=== PATIENT | male | born 1985 | race Caucasian/White ===

== ENCOUNTER 2023-10-01 18:30 | Emergency (ER) | payer MEDICAID, SELFPAY ==
[2023-10-01 18:31] VITALS: BP 132/82; PULSE 77; RESP 16; TEMP 36.4; O2SAT 98; BMI 23.8
--- NOTE | 2023-10-01 19:10 | EX.ED.VIS.PS ---
HPI <Dr. Tarik Mayen DO - Last Filed: 10/05/23 07:21> HPI - Psych History of Present Illness Chief Complaint: Abd Pain Narrative Narrative: 38-year-old male presenting with suicidal thoughts. He states he does not have a plan to kill himself. He does believe he might hurt himself if he gets discharged home. Patient was recently seen for similar symptoms in [place]. Patient states that he was put in a facility for psychiatric issues. Patient reports he has a history of bipolar disorder and anxiety and is on any medications. He said with his recent hospitalization he was discharged home with medications and states that he did not know how to get his medications refilled because he was in a different town and did not know where to go. Patient states that he recently moved to [place] to live with his sister who had liver cancer. He states he has been biking and hitchhiking his way back home to [place]. He states he lost his bike somewhere along the way. Patient does have a hiking pack and sleeping bags. Patient states that he is trying to get back to his hometown where he can get his healthcare providers. PFSH <Dr. Tarik Mayen, - Last Filed: 10/05/23 07:21> PFSH Allergy/AdvReac Type Severity Reaction Status Date / Time No Known Allergies Allergy Verified 10/01/23 18:38 Social History Smoking Status: Current every day smoker tobacco type: cigarettes ROS <Dr. Tarik Mayen, - Last Filed: 10/05/23 07:21> ROS ED Constitutional Constitutional ED: Denies chills, fever(s) or sweats Eyes Eyes: Denies blurry vision or change in vision ENT ENT ED: Denies ear pain or sore throat Cardiovascular Cardiovascular: Denies chest pain, palpitations or racing heartbeat Respiratory/Chest Respiratory/Chest: Denies cough, dyspnea or sputum Gastrointestinal Gastrointestinal: Denies abdominal pain, constipation, diarrhea, nausea or vomiting Genitourinary Genitourinary ED: Denies dysuria, hematuria or urinary frequency Musculoskeletal Musculoskeletal: Denies arthralgias, myalgias or neck pain Integumentary Denies abscess, Abrasions or rash Neurologic Neurologic: Denies headache(s), paresthesias or weakness Psychiatric Psychiatric: Denies anxiety, depression, suicidal ideation or suicidal thoughts Endocrine Endocrinology: Denies polydipsia or polyuria EXAM <Dr. Tarik Mayen DO - Last Filed: 10/05/23 07:21> Physical Exam Const Vital Signs: 10/01/23 18:31 10/01/23 23:32 10/02/23 04:19 Temperature 97.6 F L 98.1 F Temperature Source Temporal Temporal Pulse Rate 77 74 84 Respiratory Rate 16 17 16 Blood Pressure 132/82 H 128/86 H 122/66 H Blood Pressure Mean 98 100 84 Pulse Ox 98 100 98 Oxygen Delivery Method Room Air Room Air Room Air 10/02/23 06:34 10/02/23 10:19 10/02/23 16:00 Temperature 97.7 F L Temperature Source Temporal Pulse Rate 88 61 81 Respiratory Rate 16 17 16 Blood Pressure 108/70 114/70 118/69 Blood Pressure Mean 82 84 85 Pulse Ox 99 97 98 Oxygen Delivery Method Room Air Room Air Room Air 10/02/23 15:00 Temperature Temperature Source Pulse Rate Respiratory Rate 18 Blood Pressure Blood Pressure Mean Pulse Ox Oxygen Delivery Method Positive well nourished and well developed General Appearance ED: well developed; Negative for pallor HEENT Reports moist mucous membranes Eyes PERRL and EOMs intact bilaterally Resp normal respiratory effort and clear to auscultation bilaterally Neuro oriented x3 and CN's II-XII intact bilaterally Sensorium / Orientation: alert Psych cooperative, denies hallucinations and denies homicidal ideation Appearance: well kempt Attitude: calm Speech: normal speech Mood & Affect: euthymic mood Attention / Concentration: attention grossly intact and concentration grossly intact Insight: limited Judgement: limited Skin General Skin Exam: Negative for jaundice or pallor <Dr. Prosper Day MD - Last Filed: 10/02/23 15:19> Physical Exam Const Vital Signs: 10/01/23 18:31 10/01/23 23:32 10/02/23 04:19 Temperature 97.6 F L 98.1 F Temperature Source Temporal Temporal Pulse Rate 77 74 84 Respiratory Rate 16 17 16 Blood Pressure 132/82 H 128/86 H 122/66 H Blood Pressure Mean 98 100 84 Pulse Ox 98 100 98 Oxygen Delivery Method Room Air Room Air Room Air 10/02/23 06:34 10/02/23 10:19 10/02/23 16:00 Temperature 97.7 F L Temperature Source Temporal Pulse Rate 88 61 81 Respiratory Rate 16 17 16 Blood Pressure 108/70 114/70 118/69 Blood Pressure Mean 82 84 85 Pulse Ox 99 97 98 Oxygen Delivery Method Room Air Room Air Room Air 10/02/23 15:00 Temperature Temperature Source Pulse Rate Respiratory Rate 18 Blood Pressure Blood Pressure Mean Pulse Ox Oxygen Delivery Method <Dr. Rajesh Payton MD - Last Filed: 10/02/23 16:43> Physical Exam Const Vital Signs: 10/01/23 18:31 10/01/23 23:32 10/02/23 04:19 Temperature 97.6 F L 98.1 F Temperature Source Temporal Temporal Pulse Rate 77 74 84 Respiratory Rate 16 17 16 Blood Pressure 132/82 H 128/86 H 122/66 H Blood Pressure Mean 98 100 84 Pulse Ox 98 100 98 Oxygen Delivery Method Room Air Room Air Room Air 10/02/23 06:34 10/02/23 10:19 10/02/23 16:00 Temperature 97.7 F L Temperature Source Temporal Pulse Rate 88 61 81 Respiratory Rate 16 17 16 Blood Pressure 108/70 114/70 118/69 Blood Pressure Mean 82 84 85 Pulse Ox 99 97 98 Oxygen Delivery Method Room Air Room Air Room Air 10/02/23 15:00 Temperature Temperature Source Pulse Rate Respiratory Rate 18 Blood Pressure Blood Pressure Mean Pulse Ox Oxygen Delivery Method MDM <Dr. Tarik Mayen DO - Last Filed: 10/05/23 07:21> MDM MDM Narrative Medical decision making narrative: Patient presenting with suicidal thoughts. He was just seen 09/29/2023 in [facility]. He states he was admitted to a psychiatric facility however when I discussed this with him and told him that he looks like he was discharged with a bus pass and some food he states home [place] Schwarz remember that. He still states that he is feeling suicidal. He states he is concerned about leaving. At this point I will get appropriate screening lab work and have right to see him. Lab Data Attestation: I reviewed the patient's lab results. Labs: Laboratory Results - last 24 hr 10/01/23 10/01/23 19:10 20:27 WBC 7.7 RBC 4.15 L Hgb 13.2 Hct 39.6 L MCV 95.4 H MCH 31.8 MCHC 33.3 RDW Std Deviation 48.1 H RDW Coeff of Charo 13.6 Plt Count 273 MPV 9.3 Immature Gran % (Auto) 0.300 Neut % (Auto) 55.0 Lymph % (Auto) 31.5 [place] % (Auto) 9.8 Eos % (Auto) 2.6 Baso % (Auto) 0.8 Absolute Neuts (auto) 4.2 Absolute Lymphs (auto) 2.41 Nucleated RBC % 0 Sodium 140 Potassium 3.6 Chloride 112 H Carbon Dioxide 24.0 Anion Gap 4 L BUN 24 H Creatinine 0.94 Estim Creat Clear Calc 114.66 Est GFR (MDRD) Af Amer 114 Est GFR (MDRD) Non-Af 94 BUN/Creatinine Ratio 25.6 H Glucose 133 H Calcium 8.6 Urine Opiates Screen NEGATIVE Urine Methadone Screen NEGATIVE Ur Barbiturates Screen NEGATIVE Ur Phencyclidine Scrn NEGATIVE Ur Amphetamines Screen NEGATIVE MDMA (Ecstasy) Screen NEGATIVE U Benzodiazepines Scrn NEGATIVE Urine Cocaine Screen NEGATIVE U Cannabinoids Screen NEGATIVE Ur Drug Screen Comment Ethyl Alcohol < 3.0 <Dr. Prosper Day MD - Last Filed: 10/02/23 15:19> [facility] Lab Data Lab results narrative: CBC is normal. BMP is unremarkable other than glucose of 133 with a normal CO2 anion gap and a elevated BUN to creatinine ratio. Talk screen is negative. Labs: Laboratory Results - last 24 hr 10/01/23 10/01/23 19:10 20:27 WBC 7.7 RBC 4.15 L Hgb 13.2 Hct 39.6 L MCV 95.4 H MCH 31.8 MCHC 33.3 RDW Std Deviation 48.1 H RDW Coeff of Charo 13.6 Plt Count 273 MPV 9.3 Immature Gran % (Auto) 0.300 Neut % (Auto) 55.0 Lymph % (Auto) 31.5 [place] % (Auto) 9.8 Eos % (Auto) 2.6 Baso % (Auto) 0.8 Absolute Neuts (auto) 4.2 Absolute Lymphs (auto) 2.41 Nucleated RBC % 0 Sodium 140 Potassium 3.6 Chloride 112 H Carbon Dioxide 24.0 Anion Gap 4 L BUN 24 H Creatinine 0.94 Estim Creat Clear Calc 114.66 Est GFR (MDRD) Af Amer 114 Est GFR (MDRD) Non-Af 94 BUN/Creatinine Ratio 25.6 H Glucose 133 H Calcium 8.6 Urine Opiates Screen NEGATIVE Urine Methadone Screen NEGATIVE Ur Barbiturates Screen NEGATIVE Ur Phencyclidine Scrn NEGATIVE Ur Amphetamines Screen NEGATIVE MDMA (Ecstasy) Screen NEGATIVE U Benzodiazepines Scrn NEGATIVE Urine Cocaine Screen NEGATIVE U Cannabinoids Screen NEGATIVE Ur Drug Screen Comment Ethyl Alcohol < 3.0 Treatment and Re-Evaluation Narrative: At change of shift I was informed of the patient's history and physical. Dr. Kurt Hill informed there was no issues during the night. I was informed that the counseling service did pink slipped him. The licensed appraiser for the counseling center has been working on disposition. At this time he has not been accepted at any facility. Patient was cooperative and there were no issues during my shift. Will transfer care to the afternoon physician Dr. Payton. <Dr. Rajesh Payton MD - Last Filed: 10/02/23 16:43> [facility] Lab Data Labs: Laboratory Results - last 24 hr 10/01/23 10/01/23 19:10 20:27 WBC 7.7 RBC 4.15 L Hgb 13.2 Hct 39.6 L MCV 95.4 H MCH 31.8 MCHC 33.3 RDW Std Deviation 48.1 H RDW Coeff of Charo 13.6 Plt Count 273 MPV 9.3 Immature Gran % (Auto) 0.300 Neut % (Auto) 55.0 Lymph % (Auto) 31.5 [place] % (Auto) 9.8 Eos % (Auto) 2.6 Baso % (Auto) 0.8 Absolute Neuts (auto) 4.2 Absolute Lymphs (auto) 2.41 Nucleated RBC % 0 Sodium 140 Potassium 3.6 Chloride 112 H Carbon Dioxide 24.0 Anion Gap 4 L BUN 24 H Creatinine 0.94 Estim Creat Clear Calc 114.66 Est GFR (MDRD) Af Amer 114 Est GFR (MDRD) Non-Af 94 BUN/Creatinine Ratio 25.6 H Glucose 133 H Calcium 8.6 Urine Opiates Screen NEGATIVE Urine Methadone Screen NEGATIVE Ur Barbiturates Screen NEGATIVE Ur Phencyclidine Scrn NEGATIVE Ur Amphetamines Screen NEGATIVE MDMA (Ecstasy) Screen NEGATIVE U Benzodiazepines Scrn NEGATIVE Urine Cocaine Screen NEGATIVE U Cannabinoids Screen NEGATIVE Ur Drug Screen Comment Ethyl Alcohol < 3.0 Rhythm Strip Rhythm Strip: Sinus bradycardia Rate: 51 Ectopy: None EKG Initial EKG: Attestation: I personally reviewed and interpreted this EKG as follows: Interpretation: Sinus Rhythm and Sinus Bradycardia Comments: Sinus bradycardia rate of 51 no acute signs of [place], ischemia or significant heart block. Discharge Plan Triage Chief Complaint: Abd Pain ED Provider: Tarik Mayen Dx/Rx/DC Orders Primary Care Provider: Care Physician,No Primary Referrals: Care Physician,No Primary [Primary Care Provider] - Disposition Disposition: Psychiatric Hospital or Unit Discharge Location: [facility] Discharge Date/Time: 10/02/23 20:01
[2023-10-01 19:22] LABS: Absolute Lymphocyte Count 2.41 X10^3/uL (0.83-4.51); Absolute Neutrophil Count 4.2 X10^3/uL (2.0-7.7); Basophil# 0.06 X10^3/uL; Basophil% 0.8 % (0-1); Eosinophils% 2.6 % (0-5); Hematocrit 39.6 % (40-54); Hemoglobin 13.2 g/dL (13.0-16.5); Lymphocyte # 2.41 X10^3/ul (0.83-4.51); Lymphocyte % 31.5 % (19-41); Mean Corp Hgb Conc 33.3 g/dL (32-36); Mean Corpuscular Hgb 31.8 pg (27.0-32.0); Mean Corpuscular Volume 95.4 fL (80-94); Mean Platelet Vol. 9.3 fl (6.2-12.0); Monocyte# 0.75 X10^3/uL; Monocyte% 9.8 % (0-10); NRBC Flagged by Analyzer 0 % (0-5); Neutrophil # 4.21 X10^3/uL (2.7-7.7); Platelet Count 273 K/mm3 (150-450); RBC Distribution Width CV 13.6 % (11.6-14.6); RBC Distribution Width SD 48.1 fl (35.1-43.9); Red Blood Count 4.15 M/mm3 (4.6-6.2); White Blood Count 7.7 K/mm3 (4.4-11.0)
[2023-10-01 19:40] LABS: Alcohol, Blood (Medical)-Serum < 3.0 mg/dL
[2023-10-01 19:42] LABS: Anion Gap 4 (5-15); BUN 24 mg/dL (7-18); BUN/Creat Ratio 25.6 RATIO (10-20); Calcium,Total 8.6 mg/dL (8.5-10.1); Chloride 112 mmol/L (98-107); Creatinine, Serum 0.94 mg/dL (0.70-1.30); EST Glomerular Filtration Rate 94 mL/min (>60); Est Glom Filt Rate - Afr Amer 114 mL/min (>60); Estimated Creatinine Clearance 114.66 ml/min; Glucose 133 mg/dL (74-106); Potassium 3.6 mmol/L (3.5-5.1); Sodium Level 140 mmol/L (136-145)
[2023-10-01 20:54] LABS: Amphetamine Urine VISTA NEGATIVE (<1000 ng/mL); Barbiturate Urine VISTA NEGATIVE (< 200 ng/mL); Benzodiazepine Urine VISTA NEGATIVE (< 200 ng/mL); Cocaine Urine VISTA NEGATIVE (< 300 ng/mL); Ecstacy Urine VISTA NEGATIVE (< 500 ng/mL); Methadone Urine VISTA NEGATIVE (< 300 ng/mL); PCP Urine VISTA NEGATIVE (< 25 ng/mL); THC Urine VISTA NEGATIVE (< 50 ng/mL); Vista UDS pH Range 5
[2023-10-01 23:32] VITALS: BP 128/86; PULSE 74; RESP 17; O2SAT 100
[2023-10-02] VITALS (8 sets, daily range): BP systolic 108–122; BP diastolic 66–70; PULSE 61–88; RESP 16–18; TEMP 36.5–36.7; O2SAT 97–99
--- NOTE | 2023-10-02 07:02 | ED.RN ---
RECEIVED CALL FROM TAVO [facility], SHE REFERRED PT TO [facility] AND [facility].
--- NOTE | 2023-10-02 12:19 | ED.RN ---
TAVO FROM CRISIS CALLED TO LET US KNOW PT WAS DECLINED AT [facility] DUE TO INSURANCE. [facility] COULD POSSIBLY ACCEPT WHEN THEY VIEW PROOF OF MEDICAID INSURANCE, TAVO IS WORKING ON THIS. [facility] HAS NO BED AVAILABILITY SO TAVO REFERRED PT TO [facility].
--- NOTE | 2023-10-02 16:26 | EKG12_ITS ---
Test Reason : PLACEMENT Blood Pressure : / mmHG Vent. Rate : 051 BPM Atrial Rate : 051 BPM P-R Int : 128 ms QRS Dur : 096 ms QT Int : 394 ms P-R-T Axes : -13 009 045 degrees QTc Int : 363 ms Sinus bradycardia Otherwise normal ECG Confirmed by Glenn Porras ([id number]), newspaper editor managing CANDY TAVAREZ ([id number]) on 10/03/2023 10:35:07 AM Referred By: Confirmed By:Glenn Porras
--- NOTE | 2023-10-02 16:30 | ED.RN ---
NO OLD EKG
--- NOTE | 2023-10-02 16:37 | ED.RN ---
RT AT THE BEDSIDE TO OBTAIN EKG. PT STARTS RAISING VOICE STATING I DON'T NEED THAT, I AM LEAVING, I AIN'T GOING FUCKING NOWHERE . THIS RN APPROACHES THE DOOR WAY AND ASKED THE PATIENT WHY HE IS UPSET. PT STATES I HAVE BEEN HERE FOR 24 FUCKING HOURS, I AIN'T DOIN NOTHING TO MYSELF YOU CAN GIVE ME MY FUCKING SHIT AND I FUCKING WILL LEAVE. RN TELLS PATIENT THAT HE CAN NOT LEAVE BECAUSE HE IS PINK SLIPPED D/T MAKING THREATS OF HARM AGAINST HIMSELF. PT STATES I CAN LEAVE OR I WILL START RIPPING FUCKING FACES OFF. RN ASKS PATIENT ARE YOU THREATENING STAFF? PATIENT STATES YEAH I FUCKING AM. 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
== END 2023-10-02 20:01 ==
PROVIDERS: Emergency Provider Student in an Organized Health Care Education/Training Program; Visit Provider Student in an Organized Health Care Education/Training Program
DX: R45.851 Suicidal ideations (principal); F17.210 Nicotine dependence, cigarettes, uncomplicated
CPT/HCPCS: 80048; 80307; 80320; 85025; 93005; 99285; G0480